=== PATIENT | female | born 1955 | race Caucasian/White ===

== ENCOUNTER 2016-07-31 08:15 | Inpatient (IN) | payer BC ==
[2016-07-27 12:08] VITALS: BMI 28.1
[~2016-07-31 08:15] MED LIST: ceFAZolin SODIUM 1 GM VIAL IVPB ONE
[2016-07-31 08:52] LABS: INR 1.08 (0.82-1.09); PROTHROMBIN TIME (PATIENT) 11.9 SEC (9.98-11.88)
[2016-07-31 08:55] LABS: ACTIVATED PTT 31.7 SECONDS (26.9-34.4)
[2016-07-31] MEDS ORDERED: ceFAZolin SODIUM 1 GM VIAL ONE (09:10)
[2016-07-31] MEDS ORDERED: CEFAZOLIN 2 GM in DEXTROSE 5%-WATER - 100 ML IVPB ONE (09:58)
--- NOTE | 2016-07-31 10:00 | HP ---
History & Physical Update - History History: No Change - Physical Physical: No Change - Assessment Assessment: No Change - Plan Plan: No Change (full H&P from 07/17/2016.)
[2016-07-31] MEDS ORDERED: LIDOCAINE 1%/EPI 1:100000 (50 ML MULTI DOSE VIAL) ONE (10:27)
[2016-07-31] MEDS ORDERED: PROPOFOL 20 ML ONE (10:40)
[2016-07-31] MEDS ORDERED: ROCURONIUM BROMIDE 50 MG/5 ML VIAL ONE ×2 (10:40→12:12)
[2016-07-31] MEDS ORDERED: MIDAZOLAM HCL 2 MG/2 ML SINGLE DOSE VIAL ONE (10:40)
[2016-07-31] MEDS ORDERED: ceFAZolin SODIUM 1 GM VIAL IVPB ONE (11:17)
[2016-07-31] MEDS ORDERED: LIDOCAINE HCL 2% 100 MG/5 ML DISP.SYRIN ONE (11:35)
[2016-07-31] MEDS ORDERED: LIDOCAINE 1%/EPI 1:100000 (50 ML MULTI DOSE VIAL) PNB ONE ×2 (11:38)
[2016-07-31] MEDS ORDERED: DEXAMETHASONE SOD PHOSPHATE 4 MG/1 ML VIAL ONE (11:45)
[2016-07-31] MEDS ORDERED: NEOSTIGMINE METHYLSULFATE 0.5 MG/ML - 10 ML MDV ONE (12:59)
[2016-07-31] MEDS ORDERED: LACTATED RINGERS SOLUTION 1,000 ML IV SCH (13:30)
[2016-07-31] MEDS ORDERED: morphine CARPU-JECT 2 MG/1 ML DISP.SYRIN IVPUSH PRN (13:32)
[2016-07-31] MEDS ORDERED: oxyCODONE HCL 5 MG TABLET PO PRN ×2 (13:32→13:33)
[2016-07-31] MEDS ORDERED: ONDANSETRON 4 MG/2 ML VIAL IVPUSH PRN ×2 (13:35→19:53)
[2016-07-31] MEDS ORDERED: ACETAMINOPHEN 650 MG/20.3 ML ORAL SOLUTION (CUPS) PO PRN (13:39)
--- NOTE | 2016-07-31 13:47 | OP ---
Operative Note - Note: Operative Date: 07/31/16 Pre-Operative Diagnosis: right adenxal mass, post menopausal bleeding Operation: robotic lapaoscopic assisted hysterectomy, b/l salingo-oopherectomy Post-Operative Diagnosis: Same as Pre-op Surgeon: Hortensia Machado Doughnut Dough Mixer: Consuelo Viramontes Anesthesiologist/ROPE TOW OPERATOR: Marcos Rome Anesthesia: General Specimens Removed: uterus/left fallopian tube and ovary for permanent, pelivc washings, right fallopian tube and ovary for frozen Estimated Blood Loss (mls): 50 Drains, Volume Out (mls): 75 (lees) Fluid Volume Replaced (mls): 1,700 Operative Report Dictated: Yes
--- NOTE | 2016-07-31 13:49 | SURG ---
Surgery Rn Clinical Coordinator Note Rn Clinical Coordinator: Consuelo Viramontes PA-C Date of Service: 07/31/16 Diagnosis: right adenxal mass, post menopausal bleeding Procedure: robotic laparoscopic assisted hysterectomy, b/l salingo-oopherectomy I was present for the entirety of the operative procedure. For further detail, please refer to operative report. Visit type - Case Type Case Type: Scheduled Admission - Emergency Emergency Visit: No - New patient This patient is new to me today: Yes Date on this admission: 07/31/16 - Critical Care Critical Care patient: No
[2016-07-31] MEDS: KETOROLAC TROMETHAMINE 15 MG/ML VIAL IVPUSH SCH ×2 (17:38→20:20)
[2016-07-31] MEDS ORDERED: ACETAMINOPHEN 650 MG/20.3 ML ORAL SOLUTION (CUPS) PO SCH (18:00)
[2016-08-01] MEDS: KETOROLAC TROMETHAMINE 15 MG/ML VIAL IVPUSH SCH ×2 (01:30→07:47)
[2016-08-01] MEDS ORDERED: PATIENT'S OWN MEDICATION (NON-FORMULARY) (Triamterene/Hydrochlorothiazid [Triamterene-Hctz PO SCH (07:00)
[2016-08-01] MEDS ORDERED: TRIAMTERENE AND HCTZ - 37.5 MG/25 MG CAPSULE PO SCH (07:00)
--- NOTE | 2016-08-01 07:59 | DS ---
Physical Exam: SUBJECTIVE: Patient seen and examined OBJECTIVE: Vital Signs Temperature 98.7 F 08/01/16 06:00 Pulse Rate 70 08/01/16 06:00 Respiratory Rate 20 08/01/16 06:00 Blood Pressure 141/66 08/01/16 06:00 O2 Sat by Pulse Oximetry (%) 98 07/31/16 21:00 PHYSICAL EXAM GENERAL: The patient is awake, alert, and fully oriented, in no acute distress. HEAD: Normal with no signs of trauma. EYES: PERRL, extraocular movements intact, sclera anicteric, conjunctiva clear. NECK: Trachea midline, full range of motion, supple. LUNGS: Breath sounds equal, clear to auscultation bilaterally, no wheezes, no crackles, no accessory muscle use. HEART: Regular rate and rhythm, S1, S2 without murmur, rub or gallop. ABDOMEN: all surgical ports intact. No hematoma. EXTREMITIES: 2+ pulses, warm, well-perfused, no edema. LABS CBC, BMP 08/01/16 07:30 HOSPITAL COURSE: Date of Admission:07/31/16 Date of Discharge: 08/01/16 The patient was admitted to the Med-Surg Unit after an elective repair of their right adnexal mass and post-menopausal bleeding. Now, s/p robotic laparoscopic assisted hysterectomy, b/l salingo-oopherectomy. The day of surgery, the patient ambulated the hallways with assistance. Her lees cath was removed and passed her tiral of void. Narcotic and non-narcotic pain management control was achieved with an oral and IV approach. Meenakshi-operative IV ABX were administered. DVT prophylaxis was achieved with SCDs and early ambulation. Prior to DC her cbc was within normal limits. Administered Lovenox 40mg SQ x1 per Dr. Machado. [place] [employer] prior to escribe of narcotic pain management. The discharge instructions and an oral pain management plan were reviewed with the patient. All questions answered. Above plan discussed with Dr. Machado and agrees. Minutes to complete discharge: 15 Visit type - Case Type Case Type: Scheduled Admission - New patient This patient is new to me today: Yes Date on this admission: 08/01/16
[2016-08-01 08:45] VITALS: BP 121/70; PULSE 60; TEMP 99
[2016-08-01 08:50] LABS: BASOPHIL 0.6 % (0-2.0); EOSINOPHIL 0.1 % (0-4.5); MCH 33.6 pg (25.7-33.7); MCHC 34.1 g/dl (32.0-36.0); MEAN CELL VOLUME 98.5 fl (80-96); MEAN PLT VOLUME 9.1 fl (7.5-11.1); NEUTROPHILS 75.2 % (42.8-82.8); PLATELET COUNT 154 K/MM3 (134-434); RDW 13.5 % (11.6-15.6); WHITE BLOOD COUNT 9.5 K/mm3 (4.0-10.0)
[2016-08-01] MEDS ORDERED: ENOXAPARIN NA (PORCINE) 40 MG/0.4 ML DISP.SYRIN SQ SCH ×2 (09:00→10:00)
[2016-08-01 09:09] LABS: COCKROFT - GAULT 135.388; CREATININE 0.6 mg/dL (0.55-1.02)
[2016-08-01] MEDS ORDERED: amLODIPine BESYLATE 10 MG TABLET (FP) PO SCH (10:00)
--- NOTE | 2016-08-01 12:01 | OP ---
DATE OF OPERATION: 07/31/2016 PREOPERATIVE DIAGNOSES: Adnexal mass. Postmenopausal vaginal bleeding. Thickened endometrium. POSTOPERATIVE DIAGNOSES: Right ovarian dermoid. Thickened endometrium. Postmenopausal vaginal bleeding. PROCEDURES: Robotic-assisted total hysterectomy and bilateral salpingo-oophorectomy. SURGEON: Hortensia Machado MD FULL STACK ENGINEER: CYRUS Gutierrez ANESTHESIA: General endotracheal and local. ESTIMATED BLOOD LOSS: Fifty milliliters. COMPLICATIONS: None. INDICATIONS: This is a 60-year-old, 3, para 3, with history of postmenopausal vaginal bleeding and thickened endometrium and a 7-cm adnexal mass. Endometrial biopsy was performed which was benign. The patient was counseled regarding surgical management. Risks, benefits, indications, and alternatives were discussed with the patient. All questions were answered. Informed consent was signed. FINDINGS: No intra-abdominal evidence of disease. The liver was nodular, consistent with cirrhosis. There was no other evidence of disease. The uterus was 6 weeks size. Left tube and ovary were normal. Right ovary contained a 7-cm, smooth-walled cyst. Right tube was normal. There was no other evidence of disease in the pelvis. The cervix was normal and vagina had no lesions. PROCEDURE: The patient was taken to the operating room and placed in the dorsal supine position. General endotracheal anesthesia was obtained without difficulty. She was then placed in the dorsal lithotomy position in Steven stirrups and prepped and draped in the normal sterile fashion. A Rizvi catheter was placed in the bladder. A speculum was placed in the vagina. The cervix was grasped with a single-toothed tenaculum and gently dilated. A gqnqbq-uw-ikgao stitch of 0 Vicryl was placed and a VCare uterine manipulator was placed in the uterus. Tenaculum and speculum were then removed. Attention was then turned to the patient's abdomen. Next, 5 mL of 1% lidocaine with epinephrine was injected into the umbilicus and an 8-mm incision was made with a scalpel. While tenting the abdominal wall, the Veress needle was inserted intra-abdominally. The abdomen was insufflated with CO2 gas. An 8-mm trocar was then placed. An additional 8-mm trocar was placed in the left mid-quadrant and right mid-quadrant and a 5-mm port was placed in the left lower quadrant. All trocars were placed under direct visualization after injecting 1% lidocaine with epinephrine. A thorough exam of the abdomen and pelvis revealed the above-noted findings. Peritoneal washings were taken using normal saline. The da Lavinia robot was sent off without difficulty. The left adnexa were elevated. The left ureter was noted to be well away from the field of dissection. The left infundibulopelvic ligament was clamped, cauterized and transected. This was carried to the broad ligament and the round ligament on the left and the vesicouterine peritoneum anteriorly. The right round ligament was elevated. The right ureter was noted to be well away from the field of dissection. The right infundibulopelvic ligament was clamped, cauterized and transected. This was carried to the broad ligament and the round ligament and the vesicouterine peritoneum anteriorly. The bladder was dissected off the anterior cervix. The uterine arteries bilaterally were skeletonized. They were clamped, cauterized and transected. The cardinal ligaments were serially clamped, cauterized and transected. The uterosacral ligaments were clamped, cauterized and transected. The utero-ovarian ligament on the right was clamped, cauterized and transected freeing the right ovary from the uterus. A vaginotomy incision was made circumferentially around the cervix. Uterus, cervix, left tube and ovary were passed through the vagina without difficulty. An Endo Catch bag was placed through the vagina and the right ovary and tube were passed into the bag and out through the vagina without any spillage intra-abdominally. The right ovary was sent for frozen section that returned benign teratoma. The vaginal cuff was closed in a running continuous fashion using 2-0 V-Loc suture. The pelvis was thoroughly irrigated and noted to be hemostatic. Surgicel was placed on the vaginal cuff for added assurance. All instruments were removed from the patient's abdomen. The da Lavinia robot was then undocked. Trocars were removed. The skin was closed with 4-0 Monocryl and Dermabond was applied. The patient was extubated and transferred in stable condition to the PACU. Sponge, needle and instrument counts were correct x2. Pelon Bradshaw/[id number]
--- NOTE | 2016-08-02 12:05 | PATH ---
Cytology Non-Gynecological Report Patient Name: ANGELIKA GALVEZ [facility] [place]. Rec. #: [id number] /Age/Gender: 1955 (Age: 60) / F Account: [id number] Location: [facility] MED/SURG Taken: 07/31/2016 Received: 07/31/2016 Reported: 08/02/2016 Physicians: Hortensia Machado MD Specimen(s) Received PELVIC WASHINGS Clinical History Pelvic wall thickening Final Diagnosis PELVIC WASHINGS: SATISFACTORY FOR EVALUATION. NO MALIGNANT CELLS IDENTIFIED. REACTIVE MESOTHELIAL CELLS AND INFLAMMATORY CELLS. Comment: Refer to [id number] for the surgical pathology results. Electronically Signed Abundio Ruano M.D. Gross Description Received is 50 cc of clear fluid fresh. One cytofunnel slide and one cell block are made.
--- NOTE | 2016-08-02 12:08 | PATH ---
Surgical Pathology Report Patient Name: ANGELIKA GALVEZ [facility]. Rec. 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 Dr. Ruano, 07/31/16 Final Diagnosis A. FALLOPIAN TUBE AND OVARY, RIGHT, SALPINGO-OOPHORECTOMY: OVARY WITH MATURE CYSTIC TERATOMA. BENIGN FALLOPIAN TUBE WITH TUBO-OVARIAN ADHESIONS. B. UTERUS, LEFT FALLOPIAN TUBE AND OVARY, HYSTERECTOMY AND SALPINGO-OOPHORECTOMY: CERVIX: CHRONIC CERVICITIS. ENDOMETRIUM: ENDOMETRIAL POLYP, BACKGROUND INACTIVE ENDOMETRIUM. MYOMETRIUM: FOCAL ADENOMYOSIS, LEIOMYOMA (1.5 CM). UTERINE SEROSA: WITHOUT SIGNIFICANT PATHOLOGIC CHANGES. LEFT FALLOPIAN TUBE: FOCAL FIBROVASCULAR ADHESIONS. LEFT OVARY: WITHOUT SIGNIFICANT PATHOLOGIC CHANGES. Electronically Signed Abundio Ruano M.D. Gross Description A. Received fresh labeled "right tube and ovary" is a 7.0 x 6.5 x 3.5 cm cystic ovary with an attached 3 cm in length fimbriated portion of fallopian tube. The outer surface of the fallopian tube is pink-red. Sectioning reveals an unremarkable lumen. The outer surface of the ovary is pink-desir and intact. The lumen contains desir sebaceous material. Sectioning reveals a focal calcification and fatty tissue. The inner lining of the cyst is smooth. A international representative section is submitted for frozen section. Coil Connector Repairer sections are submitted in 8 cassettes as follows: 1-frozen section residue; 2-fallopian tube fimbria; 3-cross sections of fallopian tube; 4-focus of calcification, following decalcification; 7-1-gekcimeq of ovarian cyst. B. Received in formalin labeled "uterus and fallopian tubes" is a 59 g hysterectomy specimen including a uterus, attached cervix and attached left fallopian tube and left ovary. The specimen measures 7.7 cm from superior to inferior, 4.5 cm from left to right and 3 cm from anterior to posterior. The serosa is pink-desir with focal subserosal nodules. The attached cervix measures 3 cm in length and averages 2.3 cm in diameter. The ectocervix is pink-desir, smooth and glistening. There is a 0.3 cm in greatest dimension anterior endocervical polyp. The endometrial cavity measures 3.2 cm in length and 2.3 cm from cornu to cornu. There is a 0.5 cm in greatest dimension anterior endometrial polyp near the fundus. The remaining endometrium is hyperemic and averages 0.1 cm in thickness. The cut surface of the subserosal nodules is desir, firm to rubbery and display whorled architecture; no areas of hemorrhage or necrosis are identified. The remaining myometrium is desir-pink and averages 1.3 cm in thickness. The left fimbriated fallopian tube measures 4 cm in length. The outer surface is desir-pink. Sectioning reveals an unremarkable lumen. The left ovary measures 2.5 x 1.3 x 1.0 cm. The outer surface is desir pink, convoluted and smooth. Sectioning reveals unremarkable ovarian parenchyma. Coil Connector Repairer sections are submitted in 11 cassettes as follows: 1-anterior cervix with endocervical polyp; 2-posterior cervix; 1-8-fguvpleb endomyometrium with polyp; 5-additional anterior endomyometrium; 5-8-uuqzbgxdy endomyometrium; 8-subserosal nodules; 9-left fallopian tube fimbria; 10-cross sections of left fallopian tube; 11-left ovary. 07/31/2016 [facility]07/31/2016
== END 2016-08-01 09:42 | disposition home or self-care (01) | DRG 743 ==
LOC: JASUSAT 08:15 → JSAMEDAYSX 13:25 → J8W 16:45
PROVIDERS: ADMIT Obstetrics & Gynecology Gynecologic Oncology; ATTEND Obstetrics & Gynecology Gynecologic Oncology
PROC: 0UT2FZZ Resection of Bilateral Ovaries, Via Natural or Artificial Opening With Percutaneous Endoscopic Assistance (ICD-10-PCS; 2016-07-31)
PROC: 8E0W4CZ Robotic Assisted Procedure of Trunk Region, Percutaneous Endoscopic Approach (ICD-10-PCS; 2016-07-31)
PROC: 3E0P05Z Introduction of Adhesion Barrier into Female Reproductive, Open Approach (ICD-10-PCS; 2016-07-31)
PROC: 0UT9FZZ Resection of Uterus, Via Natural or Artificial Opening With Percutaneous Endoscopic Assistance (ICD-10-PCS; principal; 2016-07-31 10:30)
PROC: 0UT7FZZ Resection of Bilateral Fallopian Tubes, Via Natural or Artificial Opening With Percutaneous Endoscopic Assistance (ICD-10-PCS; 2016-07-31 10:30)
DX: D27.0 Benign neoplasm of right ovary (principal); R93.8 Abnormal findings on diagnostic imaging of other specified body structures; N93.8 Other specified abnormal uterine and vaginal bleeding; I10 Essential (primary) hypertension; M16.0 Bilateral primary osteoarthritis of hip
CPT/HCPCS: 36415; 80048; 85025; 85610; 85730; 86850; 86900; 86901; 88108; 88305-TC; 88307-TC; 88311-TC; 88331-TC; 94010; 94760